=== PATIENT | female | born 1935 | race Caucasian/White ===

== ENCOUNTER 2016-10-06 20:49 | Emergency (ER) | payer OTHER, BC ==
[~2016-10-06] VITALS: Ht 152.4 cm; Wt 46.0 kg
[~2016-10-06 20:49] MED LIST: Ecotrin PO; HYDROCHLOROTHIA25 MG PO; LISINOPRIL40 MG PO; Levaquin PO; Tylenol/Codeine #3 PO
[2016-10-06 21:47] LABS: HEMATOCRIT 39.6 % (36.0-46.0); MCH 30.6 PG (29.0-34.0); MCHC 33.3 G/DL (30.0-36.0); MCV 91.7 FL (83-99); MEAN PLAT.VOLUME 9.6 uM^3 (9.5-12.4); PLATELET COUNT 149 K/uL (156-360); RBC DIS.WIDTH-CV 12.4 % (11.8-14.6); RBC DIS.WIDTH-SD 41.4 % (39-53); RED BLOOD COUNT 4.32 M/uL (3.80-5.20); WHITE BLOOD COUNT 6.8 K/uL (4.1-10.2)
[2016-10-06 21:56] LABS: CHLORIDE 98 mEq/L (99-109); POTASSIUM 3.3 mEq/L (3.7-5.4); SODIUM 137 mEq/L (136-147)
[2016-10-06 21:58] LABS: GLUCOSE 98 mg/dL (70-99)
[2016-10-06 21:59] LABS: ANION GAP 13 MEQ/L (2-14)
[2016-10-06 22:01] LABS: GFR ESTIMATE (CALCULATED) > 59 mL/min/
[2016-10-06 22:02] LABS: UREA NITROGEN (BUN) 36 mg/dL (9-23)
[2016-10-06 22:07] LABS: TROP-I INTERPRETATION NEGATIVE; TROPONIN-I 0.03 ng/mL (0.0-0.30)
[2016-10-06 22:15] VITALS: BP 142/75
== END 2016-10-06 23:00 | disposition home or self-care (01) ==
LOC: EME → EDBD 20:49 → EME 20:49
DX: R55 Syncope and collapse (principal); E86.0 Dehydration; R07.89 Other chest pain; Z95.0 Presence of cardiac pacemaker; I10 Essential (primary) hypertension; Z85.72 Personal history of non-Hodgkin lymphomas; Z79.82 Long term (current) use of aspirin
CPT/HCPCS: 80048; 84484; 85027; 93005; 99281; 99285

== ENCOUNTER 2016-10-12 11:28 | Emergency (ER) | payer OTHER, BC ==
[~2016-10-12] VITALS: Ht 147.3 cm; Wt 44.4 kg
[2016-10-12] MEDS ORDERED: ULTRAM50 MG PO (15:33)
[2016-10-12] MEDS ORDERED: KEFLEX500 MG PO (15:33)
[2016-10-12 15:56] VITALS: BP 143/89
== END 2016-10-12 16:08 | disposition home or self-care (01) ==
LOC: EME 11:28
DX: S61.011A Laceration without foreign body of right thumb without damage to nail, initial encounter (principal); S81.811A Laceration without foreign body, right lower leg, initial encounter; W26.8XXA Contact with other sharp object(s), not elsewhere classified, initial encounter; Y93.89 Activity, other specified; Z23 Encounter for immunization; E78.5 Hyperlipidemia, unspecified; I10 Essential (primary) hypertension; E03.9 Hypothyroidism, unspecified
CPT/HCPCS: 73140; 73564; 99281; 99284

== ENCOUNTER 2017-10-28 13:38 | Emergency (ER) | payer OTHER, BC ==
[~2017-10-28] VITALS: Ht 142.2 cm; Wt 43.6 kg
[~2017-10-28 13:38] MED LIST changes: +KEFLEX500 MG PO; +ULTRAM50 MG PO
[2017-10-28 14:20] LABS: HEMATOCRIT 36.5 % (36.0-46.0); HEMOGLOBIN 12.2 G/DL (11.9-15.5); MCH 30.7 PG (29.0-34.0); MCHC 33.4 G/DL (30.0-36.0); MCV 91.7 FL (83-99); PLATELET COUNT 178 K/uL (156-360); RBC DIS.WIDTH-CV 13.4 % (11.8-14.6); RBC DIS.WIDTH-SD 45.8 % (39-53); RED BLOOD COUNT 3.98 M/uL (3.80-5.20); WHITE BLOOD COUNT 8.5 K/uL (4.1-10.2)
[2017-10-28 14:33] LABS: CHLORIDE 90 mEq/L (99-109); POTASSIUM 4.5 mEq/L (3.7-5.4); SODIUM 132 mEq/L (136-147)
[2017-10-28 14:34] LABS: GLUCOSE 87 mg/dL (70-99)
[2017-10-28 14:38] LABS: CREATININE 0.6 mg/dL (0.6-1.3); GFR ESTIMATE (CALCULATED) > 59 mL/min/
[2017-10-28 14:39] LABS: UREA NITROGEN (BUN) 16 mg/dL (9-23)
[2017-10-28 14:45] LABS: TROP-I INTERPRETATION NEGATIVE; TROPONIN-I 0.03 ng/mL (0.0-0.30)
[2017-10-28 15:29] LABS: ALBUMIN 4.1 g/dL (3.2-4.8)
[2017-10-28 15:32] LABS: TOTAL PROTEIN 7.4 g/dL (6.4-8.3)
[2017-10-28 15:34] LABS: TOTAL BILIRUBIN 0.5 mg/dL (0.0-1.0)
[2017-10-28 15:35] LABS: ALKALINE PHOSPHATASE 64 IU/L (3-129); PHOSPHORUS 3.4 mg/dL (2.5-4.9)
[2017-10-28 15:37] LABS: AST (GOT) 26 IU/L (2-34); DIRECT BILIRUBIN 0.2 mg/dL (0.0-0.3)
[2017-10-28 15:38] LABS: ALT (GPT) 17 IU/L (3-49)
[2017-10-28 17:15] LABS: TROP-I INTERPRETATION NEGATIVE; TROPONIN-I 0.03 ng/mL (0.0-0.30)
[2017-10-28] MEDS ORDERED: LASIX20 MG PO (18:31)
[2017-10-28 19:10] VITALS: BP 150/76
== END 2017-10-28 19:11 | disposition home or self-care (01) ==
LOC: EME 13:38
PROVIDERS: Nurse Practitioner Family
DX: R06.02 Shortness of breath (principal); R60.0 Localized edema; R78.89 Finding of other specified substances, not normally found in blood; I10 Essential (primary) hypertension; Z85.72 Personal history of non-Hodgkin lymphomas; Z95.0 Presence of cardiac pacemaker; Z79.82 Long term (current) use of aspirin
CPT/HCPCS: 71046; 80048; 80069; 80076; 83880; 84484; 85027; 93005; 99281; 99284; J1940